=== PATIENT | male | born 1965 | race Caucasian/White ===

== ENCOUNTER 2021-10-20 08:33 | Outpatient (REF) | payer OTHER, SELFPAY ==
[2021-10-20 09:26] LABS: Binax Internal Control QC Valid; Binax Now Covid-19 Ag Positive (Negative)
== END 2021-10-20 08:34 | disposition home or self-care (01) ==
LOC: HO.LAB 08:33
PROVIDERS: Visit Provider Internal Medicine
DX: Z20.822 Contact with and (suspected) exposure to COVID-19 (principal)
CPT/HCPCS: 36415; C9803

== ENCOUNTER 2021-10-23 12:55 | Outpatient (REF) | payer OTHER, SELFPAY ==
[2021-10-23 15:08] LABS: Binax Internal Control QC Valid; Binax Now Covid-19 Ag Negative (Negative)
== END 2021-10-23 12:56 | disposition home or self-care (01) ==
LOC: HO.LAB 12:55
PROVIDERS: Visit Provider Internal Medicine
DX: Z20.822 Contact with and (suspected) exposure to COVID-19 (principal)
CPT/HCPCS: 36415; C9803

== ENCOUNTER 2023-06-18 14:24 | Outpatient (AMB) | payer BC, SELFPAY ==
--- NOTE | 2023-06-18 14:26 | MHC.PC.OV ---
Vital Signs 06/18/23 14:28 Height 5 ft 11 in Weight 203 lb BMI 28.3 BP 122/74 Blood Pressure Location Lt brachial Position Sitting Pulse 75 Pulse Source Pulse Oximeter Pulse Oximetry (%) 97 Oxygen Delivery Method Room Air Intake Visit Reasons: est care Intake Note: Patient is here as a new patient, who is concerned about bilateral foot swelling, and vericose veins. Patient needs refill of his Atorvastatin. Allergies No Known Allergies Allergy (Verified 06/18/23 14:30) Tobacco use date assessed: 06/18/23 Dental Screening Dental Screen Date: 06/18/23 Did you have a dental visit in the last 12 months?: Yes Did you have a dental problem in the last 6 months where you did not have access to dental care?: No Was dental information given to patient?: Patient has dentist HPI est care HPI Details New patient Prior PCP:?Dr. Adis Chan Last office visit/CPE: >2 years Acute issue(s): Bilateral foot swelling Varicose veins Erectile Dysfunction PMHx: HLD, varicose veins, LE edema, Gout, polyps & recommended f/u in 5 years SurgHx: None FHx: Dad: Varicose veins, Cerebral Aneurysm age 47 and . Mom: Thyroid, HTN, HLD. Brother: Stomach CA SocHx: Smokes 1/2 ppd. Also tried e-cigarettes. EtOH 3-4 drinks per day. No drugs. HPI Comments History of Present Illness Details Documentation assistance for Dejan Raphael MD, was provided by Stef Moses,? Talent Acquisition Sourcer on 06/18/2023 2:50 PM EST. I, Dr. Raphael, have read, observed, and verified documentation. PFSH Medical History (Updated 06/18/23 @ 15:15 by Stef Moses) High cholesterol Surgical History (Updated 06/18/23 @ 14:37 by Mai Montes De Oca CMA) H/O colonoscopy Family History (Updated 06/18/23 @ 14:41 by Mai Montes De Oca CMA) Father Brain aneurysm Mother High blood pressure Thyroid disease Other Mental health disorder Social History (Updated 06/18/23 @ 14:43 by Mai Montes De Oca CMA) Household Members: Family Housing: House Alcohol intake: current Patient Tobacco Use Status: Current everyday Tobacco user Cigarettes Per Day: 10 e-Cigarette/Vaping Use: Former Use Use of substances other than those prescribed or required for medical reasons: No Have you been hit, kicked, punched, or otherwise hurt by someone within the past year? 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 Hearing needs: Yes (hearing aids) Vision needs: Yes (reading glasses.) Review of Systems Const Denies chills, Denies fatigue, Denies fever(s), Denies headache(s) and Denies weakness ENT Denies dizziness and Denies headache(s) Card Denies chest pain, Denies lightheadedness, Denies dyspnea and Denies other (Palpitations) Resp Denies cough, Denies dyspnea, Denies wheezing and Denies other ( shortness of breath) Musc Denies numbness and Denies tingling Neuro Denies dizziness, Denies headache(s), Denies numbness, Denies tingling, Denies paresthesias and Denies weakness Psych Denies anxiety and Denies depression Endo Denies fatigue Aller/Immun Denies wheezing Physical exam (Primary Care) Vital Signs: Last Vital Signs Pulse 75 06/18/23 14:28 BP 122/74 06/18/23 14:28 Pulse Ox 97 06/18/23 14:28 Oxygen Delivery Method Room Air 06/18/23 14:28 BMI result Body Mass Index 28.3 Tobacco/Smoking Status: Tobacco use Status Tobacco use date assessed 06/18/23 06/18/23 14:43 Patient Tobacco Use Status Current everyday Tobacco 06/18/23 14:43 e-Cigarette/Vaping Use Former Use 06/18/23 14:43 Const General: no acute distress and well developed Nutritional Appearance: well nourished Orientation/consciousness: patient oriented x3 HENMT Head: Yes normocephalic and Yes atraumatic Eyes General: appearance normal, both eyes and all related structures Pupils: Equal, round and reactive pupils present EOM: EOMs intact bilaterally Resp Effort & Inspection: normal respiratory effort Auscultation: clear to auscultation bilaterally Cardio Rate: regular rate Rhythm: regular rhythm Heart sounds: S1 normal heart sound present, S2 normal heart sound present, no gallops, no murmurs and no rubs Neuro General: patient oriented x3 and gait normal Cranial nerves: Yes Equal, round and reactive pupils present Psych Affect: normal affect Assessment and Plan Assessment & Plan (1) Hyperlipidemia: Code(s): E78.5 - Hyperlipidemia, unspecified Plan: Has been on atorvastatin though he has not had it for few weeks Check lipids He can resume atorvastatin Will follow-up and adjust medication as needed (2) Bilateral swelling of feet: Code(s): M79.89 - Other specified soft tissue disorders Plan: Significant venous insufficiency and rather severe varicosities Avoid salt/sodium Elevate legs Use compression stockings when unable to elevate legs Discussed that we can use diuretics episodically if needed. (3) Varicose veins of lower extremity: Code(s): I83.90 - Asymptomatic varicose veins of unspecified lower extremity Plan: Patient has not seen a vascular specialist He does not feel a need to do so at this time. We can readdress in the future if worsening (4) History of gout: Code(s): Z87.39 - Personal history of other diseases of the musculoskeletal system and connective tissue Plan: Check uric acid (5) Smoker: Code(s): F17.200 - Nicotine dependence, unspecified, uncomplicated Plan: Advised weaning and cessation (6) Erectile dysfunction: Code(s): N52.9 - Male erectile dysfunction, unspecified Plan: He has used sildenafil in the past. Will resume this. Check testosterone level (7) Screening for colon cancer: Code(s): Z12.11 - Encounter for screening for malignant neoplasm of colon (8) Laboratory exam ordered as part of routine general medical examination: Code(s): Z00.00 - Encounter for general adult medical examination without abnormal findings Plan: Check labs Orders: Orders Comprehensive [place]. Panel Fast Today Z00.00 - Encounter for general adult medical examination without abnormal findings Lipid Panel Today Z00.00 - Encounter for general adult medical examination without abnormal findings Prostate Specific Antigen Scr Today Z12.5 - Encounter for screening for malignant neoplasm of prostate TSH reflex Free T4 Today Z00.00 - Encounter for general adult medical examination without abnormal findings Microalbumin, Random (w Creat) Today I10 - Essential (primary) hypertension UA and rflx microscopic Today Z00.00 - Encounter for general adult medical examination without abnormal findings Uric Acid Today Z87.39 - Personal history of other diseases of the musculoskeletal system and connective tissue Testosterone, Free/Total Today N52.9 - Male erectile dysfunction, unspecified Medications: New sildenafil administer 30 minutes to 4 hours before activity 50 mg PO DAILY PRN 6 tabs 4RF sexual activity 30 days Refilled atorvastatin 10 mg PO QPM 90 tabs 2RF Coding Level of Care Code New Pt Level 4 (37505) Diagnoses Hyperlipidemia E78.5 Bilateral swelling of feet M79.89 Varicose veins of lower extremity I83.90 History of gout Z87.39 Smoker F17.200 Erectile dysfunction N52.9 Screening for colon cancer Z12.11 Laboratory exam ordered as part of routine general medical examination Z00.00
[2023-06-18 14:28] VITALS: BP 122/74; PULSE 75; O2SAT 97; BMI 28.3
== END 2023-06-18 15:26 | disposition home or self-care (01) ==
PROVIDERS: PCP Family Medicine; Visit Provider Family Medicine
DX: E78.5 Hyperlipidemia, unspecified (principal); M79.89 Other specified soft tissue disorders; Z87.39 Personal history of other diseases of the musculoskeletal system and connective tissue; F17.210 Nicotine dependence, cigarettes, uncomplicated; I83.90 Asymptomatic varicose veins of unspecified lower extremity; N52.9 Male erectile dysfunction, unspecified
CPT/HCPCS: 99214

== ENCOUNTER 2023-08-06 07:13 | Outpatient (REF) | payer BC, SELFPAY ==
[2023-08-06 12:04] LABS: Alanine Aminotransferase 18 U/L (0-40); Albumin Level 4.5 g/dL (3.5-5.0); Alkaline Phosphatase 90 U/L (39-117); Anion Gap 12 (12-20); Aspartate Amino Transferase 23 U/L (5-37); Bilirubin Total 0.4 mg/dL (0.0-1.0); Blood Urea Nitrogen 7 mg/dL (9-16); Calcium 9.6 mg/dL (8.4-10.2); Carbon Dioxide 28 mmol/L (22-29); Chloride 102 mmol/L (96-108); Cholesterol 272 mg/dL (<200); Estimated Glomerular Filt Rate > 60; Glucose Fasting 96 mg/dL (60-99); HDL Cholesterol 64 mg/dL (>40); LDL Cholesterol Calculated 188 mg/dL (<100); Sodium 137 mmol/L (135-145); Total Protein 7.8 g/dL (6.5-8.0); Triglycerides 104 mg/dL (<150); Uric Acid 8.9 mg/dL (3.4-7.0)
[2023-08-06 12:09] LABS: TSH reflex Free T4 2.34 uIU/mL (0.32-4.0)
[2023-08-11 13:08] LABS: Testosterone, Free 95.4 pg/mL (35.0-155.0); Testosterone, Total 745 ng/dL (250-1100)
== END 2023-08-06 07:14 | disposition home or self-care (01) ==
LOC: HO.WFDLDS 07:13
PROVIDERS: Visit Provider Family Medicine
DX: Z00.00 Encounter for general adult medical examination without abnormal findings (principal); Z12.5 Encounter for screening for malignant neoplasm of prostate; N52.9 Male erectile dysfunction, unspecified; Z87.39 Personal history of other diseases of the musculoskeletal system and connective tissue
CPT/HCPCS: 36415; 80053; 80061; 84153; 84402; 84403; 84443; 84550

== ENCOUNTER 2023-09-03 08:31 | Outpatient (REF) | payer BC, SELFPAY ==
[2023-09-03 08:41] LABS: Appearance Urine Clear; Color Urine Yellow; Glucose Urine UA Negative (Negative); Leukocyte Esterase Urine Negative (Negative); Nitrite Urine Negative (Negative); PH 5.5 (5.0-9.0); Specific Gravity - Urine <= 1.005 (1.005-1.025); Urine Blood Negative (Negative); Urine Ketones Negative (Negative); Urine Protein Negative (Neg-Trace)
[2023-09-03 09:17] LABS: Microalbumin Urine < 5.0 mg/L
== END 2023-09-03 08:32 | disposition home or self-care (01) ==
LOC: HO.LNP 08:31
PROVIDERS: Visit Provider Family Medicine
DX: Z00.00 Encounter for general adult medical examination without abnormal findings (principal); I10 Essential (primary) hypertension
CPT/HCPCS: 81003; 82043; 82570

== ENCOUNTER 2023-09-17 11:36 | Outpatient (AMB) | payer BC, SELFPAY ==
[2023-09-17 11:49] VITALS: BP 126/62; PULSE 78; RESP 14; O2SAT 96; BMI 28.6
--- NOTE | 2023-09-17 11:49 | MHC.PC.OV ---
Vital Signs 09/17/23 11:49 Height 5 ft 11 in Weight 205 lb BMI 28.6 BP 126/62 Blood Pressure Location Lt brachial Position Sitting Respiration 14 Pulse 78 Pulse Source Pulse Oximeter Pulse Oximetry (%) 96 Oxygen Delivery Method Room Air Intake Visit Reasons: CPE with f/u labs and health maint. Intake Note: Patient is here to follow up on labs and is here for a physical today. Patients reports he has no concerns at this time. 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 HPI Details 58 y/o male presents for a CPE with f/u labs and health maintenance. Labs were drawn 08/06/23. Reviewed labs with pt. Elevated uric acid level at 8.9 mg.dL. He reports it has been a couple years since he had a gout flare-up. Triglycerides 104. TC 272. LDL 188. HDL 64. Continues to smoke 1/2 ppd. He reports he has been smoking 40+ years. [facility] Medical History (Updated 09/17/23 @ 12:46 by Stef Moses) High cholesterol Surgical History (Updated 06/18/23 @ 14:37 by Mai Montes De Oca CMA) H/O colonoscopy Family History (Updated 06/18/23 @ 14:41 by Mai Montes De Oca CMA) Father Brain aneurysm Mother High blood pressure Thyroid disease Other Mental health disorder Social History (Updated 06/18/23 @ 14:43 by Mai Montes De Oca CMA) Household Members: Family Housing: House Alcohol intake: current Patient Tobacco Use Status: Current everyday Tobacco user Cigarettes Per Day: 10 e-Cigarette/Vaping Use: Former Use Special loy needs: No service: No Current occupational status: employed 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 Cognitive needs: No Hearing needs: Yes (hearing aids) Vision needs: Yes (reading glasses.) Questionnaire PHQ-9 Over the last 2 weeks, how often have you been bothered by any of the following problems? 1. Little interest or pleasure in doing things: not at all 2. Feeling down, depressed, or hopeless: not at all 3. Trouble falling or staying asleep, or sleeping too much: not at all 4. Feeling tired or having little energy: not at all 5. Poor appetite or overeating: not at all 6. Feeling bad about yourself - or that you are a failure or have let yourself or your family down: not at all 7. Trouble concentrating on things, such as reading the newspaper or watching television: not at all 8. Moving or speaking so slowly that other people could have noticed. Or the opposite - being so fidgety or restless that you have been moving around a lot more than usual: not at all 9. Thoughts that you would be better off or of hurting yourself in some way: not at all Total score: 0 Depression Screening Interpretation: Negative Depression Screening Done: Yes 35393 - PHQ-9 Billing: Yes Source: Developed by Drs. Taye Tellez, Lauren Leigh, Eliceo Boogie and colleagues, with an educational kieran from [employer]. Thrive Questionnaire Date Thrive assessed: 09/17/23 I am a: Patient What is your living situation today?: I have a steady place to live Within the past 12 months, did the food you bought not last and you didn't have the money to get more?: Never true Within the past 12 months, did you worry whether your food would run out before you got money to buy more?: Never true Do you have trouble paying for medicines?: No Do you have trouble getting transportation to medical appointments?: No Do you have trouble paying your heating and electricity bill?: No Do you have trouble taking care of your child, family member or friend?: No Do you have trouble with day-to-day activities such as bathing, preparing meals, shopping, managing finances, etc.?: No Are you currently unemployed and looking for a job?: No Are you interested in more education?: No Please select the resources that you would like help with: None Currently or been in a relationship where the following occur: no concerns reported AUDIT C Alcohol Use Questionnaire (AUDIT-C) 1. How often do you have a drink containing alcohol?: 2-4 times a month 2. How many drinks containing alcohol do you have on a typical day when you are drinking?: 1 or 2 3. How often do you have six or more drinks on one occasion?: Never Total Score: 2 TAPAN-7 AMB Questionnaire TAPAN-7 Date TAPAN - 7 assessed: 09/17/23 Feeling nervous, anxious, or on edge: 0 = Not at all Not being able to stop or control worryin = Not at all Worrying too much about different things: 0 = Not at all Trouble relaxin = Not at all Being so restless that it is hard to sit still: 0 = Not at all Becoming easily annoyed or irritable: 0 = Not at all Feeling afraid as if something awful might happen: 0 = Not at all Total TAPAN-7 score (0-4 normal; 5-9 mild; 10-14 moderate; 15-21 severe): 0 Source: Developed by Drs. Taye Tellez, Lauren Leigh, Eliceo Boogie and colleagues, with an educational kieran from [employer]. TAPAN-7 Assessment Billing TAPAN-7 Assessment Tool: TAPAN-7 Assessment 58142 Review of Systems Const Denies chills, Denies fatigue, Denies fever(s), Denies headache(s) and Denies weakness Eyes Denies change in vision ENT Denies dizziness, Denies headache(s), Denies hearing loss, Denies nasal congestion, Denies sinus pain, Denies sinus pressure and Denies sore throat Card Denies chest pain, Denies lightheadedness, Denies dyspnea and Denies other (palpitations) Resp Denies cough, Denies dyspnea and Denies wheezing GI Denies abdominal pain, Denies melena, Denies hematochezia, Denies change in bowel habits, Denies dyspepsia and Denies nausea Denies hematuria and Denies dysuria Musc Denies abnormal gait, Denies myalgias, Denies arthralgias, Denies numbness and Denies tingling Skin/Breast Denies rash, Denies unusual bruising and Denies wounds Neuro Denies abnormal gait, Denies dizziness, Denies headache(s), Denies memory loss, Denies numbness, Denies Sensory deficit (Neuro), Denies tingling and Denies weakness Psych Denies anxiety, Denies depression and Denies memory loss Endo Denies cold intolerance, Denies fatigue, Denies heat intolerance, Denies polydipsia and Denies polyuria [place]rell/Lymph Denies easy bleeding and Denies easy bruising Aller/Immun Denies wheezing Physical exam (Primary Care) Vital Signs: Last Vital Signs Pulse 78 09/17/23 11:49 Resp 14 09/17/23 11:49 BP 126/62 09/17/23 11:49 Pulse Ox 96 09/17/23 11:49 Oxygen Delivery Method Room Air 09/17/23 11:49 BMI result Body Mass Index 28.6 Tobacco/Smoking Status: Tobacco use Status Tobacco use date assessed 09/17/23 09/17/23 11:57 Patient Tobacco Use Status Current everyday Tobacco 09/17/23 11:57 e-Cigarette/Vaping Use Former Use 09/17/23 11:57 PHQ-9: PHQ-9 Score PHQ-9: Total score 0 09/17/23 12:46 Depression Screening Interpretation: Negative Thrive Assessment: Date of Thrive Assessment Date Thrive assessed 09/17/23 09/17/23 11:58 Currently or been in a relationship where the following occur: no concerns reported Const General: no acute distress, well developed, alert and awake Nutritional Appearance: well nourished Orientation/consciousness: patient oriented x3 HENMT Head: Yes normocephalic and Yes atraumatic Ears: hearing grossly normal bilaterally and TM's normal bilaterally General nose exam: Normal external nose present and Normal nares present Mouth: Normal oral and palatal mucosa present and moist mucous membranes Teeth and gingiva: dentition normal Throat: Yes posterior oropharynx normal Eyes General: appearance normal, both eyes and all related structures Pupils: Equal, round and reactive pupils present and Pupil accommodation reflex normal EOM: EOMs intact bilaterally Neck Neck: Yes normal visual inspection, Yes no lymphadenopathy and Yes trachea midline Thyroid: Thyroid normal Carotids: no bruits Lymphatic: no lymphadenopathy noted Chest Chest palpation & inspection: normal inspection of the chest Resp Effort & Inspection: normal respiratory effort Auscultation: clear to auscultation bilaterally Cardio Rate: regular rate Rhythm: regular rhythm Heart sounds: S1 normal heart sound present, S2 normal heart sound present, no gallops, no murmurs and no rubs Bruits: no abdominal aortic bruits and no carotid bruits GI Palpation (GI): No Abdominal aortic bruit present, Soft to palpation, nontender, No hepatosplenomegaly present and No Rebound tenderness present Auscultation: normal bowel sounds General: Yes no CVA tenderness Back/Spine/Pelvis Back: no CVA tenderness Cervical Spine: cervical ROM normal and No Cervical spine tenderness Thoracic/Lumbar Spine: thoraco-lumbar ROM normal, No pain with thoraco-lumbar ROM, No thoracic spinal tenderness and No lumbar spinal tenderness Skin Lesions: no lesions Rashes: no rashes Trauma: no lacerations or abrasions Wounds: no wounds Nails: normal Neuro General: patient oriented x3 Cranial nerves: Yes Equal, round and reactive pupils present Cognition (Neuro): normal cognition Gait exam (Neuro): Normal gait present Motor exam (neuro): 5/5 motor strength present throughout Sensory Exam: No Sensory deficit (Neuro) Deep tendon reflexes (DTR's): Right patellar reflex intensity grade: 2+ and Left patellar reflex intensity grade: 2+ Extrem General: Yes normal to inspection and No edema Psych Appearance: grossly normal Affect: normal affect Attitude: cooperative Thought process: Normal thought process present Assessment and Plan Assessment & Plan (1) Adult general medical exam: Code(s): Z00.00 - Encounter for general adult medical examination without abnormal findings Plan: 58-year-old?male?presents?for?complete?physical?exam Encouraged?healthy?diet?with?active?lifestyle?and?plenty?of?exercise (2) Elevated blood uric acid level: Code(s): E79.0 - Hyperuricemia without signs of inflammatory arthritis and tophaceous disease Plan: Elevated?uric?acid?levels?but?patient?says?he?has?had?no?recent?flares?of?gout Encouraged?diet?low?in?proteins,?sea?foods?and?alcohol (3) History of gout: Code(s): Z87.39 - Personal history of other diseases of the musculoskeletal system and connective tissue Plan: As?above (4) Erectile dysfunction: Code(s): N52.9 - Male erectile dysfunction, unspecified Plan: Testosterone?levels?were?normal Encouraged?control?of?his?cholesterol?levels?and?recommended?smoking?cessation (5) Hyperlipidemia: Code(s): E78.5 - Hyperlipidemia, unspecified Plan: Lipids?significantly?elevated Resume?atorvastatin?at?20?mg?daily Will?follow-up?on?this?in?a?few?months (6) Smoker: Code(s): F17.200 - Nicotine dependence, unspecified, uncomplicated Plan: As?above,?advised?smoking?cessation Meets?criteria?for?low-dose?CT?scan?screening?for?lung?cancer-ordered (7) Screening for prostate cancer: Code(s): Z12.5 - Encounter for screening for malignant neoplasm of prostate Plan: PSA?was?within?normal?limits Orders: Orders Comprehensive [place]. Panel Fast Today E78.5 - Hyperlipidemia, unspecified, Z00.00 - Encounter for general adult medical examination without abnormal findings Lipid Panel Today E78.5 - Hyperlipidemia, unspecified, Z00.00 - Encounter for general adult medical examination without abnormal findings Uric Acid Today E79.0 - Hyperuricemia without signs of inflammatory arthritis and tophaceous disease Medications: Changed From atorvastatin 10 mg PO QPM 90 tabs 2RF To atorvastatin 20 mg PO QPM 90 tabs 2RF 90 days Coding Level of Care Code Est Pt Prev Care 40-64y(02095) Diagnoses Adult general medical exam Z00.00 Elevated blood uric acid level E79.0 History of gout Z87.39 Erectile dysfunction N52.9 Hyperlipidemia E78.5 Smoker F17.200 Screening for prostate cancer Z12.5 Additional Codes TAPAN-7 Assessment Billing - TAPAN-7 Assessment Tool: TAPAN-7 Assessment 65541 ([id number])
== END 2023-09-17 13:09 | disposition home or self-care (01) ==
PROVIDERS: PCP Family Medicine; Visit Provider Family Medicine
DX: Z00.00 Encounter for general adult medical examination without abnormal findings (principal); E79.0 Hyperuricemia without signs of inflammatory arthritis and tophaceous disease; Z87.39 Personal history of other diseases of the musculoskeletal system and connective tissue; N52.9 Male erectile dysfunction, unspecified; E78.5 Hyperlipidemia, unspecified; F17.210 Nicotine dependence, cigarettes, uncomplicated
CPT/HCPCS: 99396

== ENCOUNTER 2023-12-17 06:58 | Outpatient (REF) | payer BC, SELFPAY ==
[2023-12-17 07:58] LABS: Alanine Aminotransferase 26 U/L (0-40); Albumin Level 4.4 g/dL (3.5-5.0); Alkaline Phosphatase 88 U/L (39-117); Anion Gap 13 (12-20); Aspartate Amino Transferase 26 U/L (5-37); Bilirubin Total 0.7 mg/dL (0.0-1.0); Blood Urea Nitrogen 9 mg/dL (9-16); Calcium 9.5 mg/dL (8.4-10.2); Carbon Dioxide 29 mmol/L (22-29); Chloride 103 mmol/L (96-108); Cholesterol 188 mg/dL (<200); Estimated Glomerular Filt Rate > 60; Glucose Fasting 100 mg/dL (60-99); HDL Cholesterol 70 mg/dL (>40); LDL Cholesterol Calculated 102 mg/dL (<100); Potassium 4.9 mmol/L (3.3-5.1); Sodium 140 mmol/L (135-145); Total Protein 7.6 g/dL (6.5-8.0); Triglycerides 82 mg/dL (<150); Uric Acid 8.7 mg/dL (3.4-7.0)
== END 2023-12-17 06:59 | disposition home or self-care (01) ==
LOC: HO.LAB 06:58
PROVIDERS: PCP Family Medicine; Visit Provider Family Medicine
DX: Z00.00 Encounter for general adult medical examination without abnormal findings (principal); E78.5 Hyperlipidemia, unspecified; E79.0 Hyperuricemia without signs of inflammatory arthritis and tophaceous disease
CPT/HCPCS: 36415; 80053; 80061; 84550

== ENCOUNTER 2023-12-17 08:13 | Outpatient (AMB) | payer BC, SELFPAY ==
[2023-12-17 08:16] VITALS: BP 108/60; PULSE 68; RESP 13; TEMP 36.4; O2SAT 98; BMI 28.7
--- NOTE | 2023-12-17 08:16 | MHC.PC.OV ---
Vital Signs 12/17/23 08:16 Height 5 ft 11 in Weight 206 lb 2 oz BMI 28.7 BP 108/60 Blood Pressure Location Rt brachial Position Sitting Respiration 13 Pulse 68 Pulse Source Pulse Oximeter Temp 97.5 F Temp Source Temporal Artery Scan Pulse Oximetry (%) 98 Oxygen Delivery Method Room Air Intake Visit Reasons: f/u hyperlipidemia Dermatology Procedural Physician Required: No Accompanied by: Self / Same As Patient Allergies No Known Allergies Allergy (Verified 12/17/23 08:22) Tobacco use date assessed: 12/17/23 Dental Screening Dental Screen Date: 12/17/23 Did you have a dental visit in the last 12 months?: Yes Did you have a dental problem in the last 6 months where you did not have access to dental care?: No Was dental information given to patient?: Patient has dentist HPI f/u hyperlipidemia HPI Details 58 y/o male presents to f/u hyperlipidemia. LDL cholesterol had been significantly elevated off of artovastatin. Refilled atorvastatin at an increase from 10 mg per day to 20 mg per day. Labs were drawn 12/17/23. Reviewed labs with pt. Fasting glucose 100. Triglycerides 82. TC improved from 272 to 188. LDL improved from 188 to 102. HDL 70. 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 Cognitive needs: No Hearing needs: Yes (hearing aids) Vision needs: Yes (reading glasses.) Questionnaire Thrive Questionnaire Date Thrive assessed: 09/17/23 TAPAN-7 AMB Questionnaire TAPAN-7 Date TAPAN - 7 assessed: 09/17/23 Source: Developed by Drs. Taye Tellez, Lauren Leigh, Eliceo Boogie and colleagues, with an educational kieran from [employer]. Review of Systems Const Denies chills, Denies fatigue, Denies fever(s), Denies headache(s) and Denies weakness ENT Denies dizziness and Denies headache(s) Card Denies dyspnea Resp Denies cough, Denies dyspnea, Denies wheezing and Denies other (shortness of breath) Musc Denies numbness and Denies tingling Neuro Denies dizziness, Denies headache(s), Denies numbness, Denies tingling and Denies weakness Psych Denies anxiety and Denies depression Endo Denies fatigue Aller/Immun Denies wheezing Physical exam (Primary Care) Vital Signs: Last Vital Signs Temp 97.5 F 12/17/23 08:16 Pulse 68 12/17/23 08:16 Resp 13 12/17/23 08:16 BP 108/60 12/17/23 08:16 Pulse Ox 98 12/17/23 08:16 Oxygen Delivery Method Room Air 12/17/23 08:16 BMI result Body Mass Index 28.7 Tobacco/Smoking Status: Tobacco use Status Tobacco use date assessed 12/17/23 12/17/23 08:23 Patient Tobacco Use Status Current everyday Tobacco 12/17/23 08:23 e-Cigarette/Vaping Use Former Use 12/17/23 08:23 Thrive Assessment: Date of Thrive Assessment Date Thrive assessed 09/17/23 12/17/23 08:23 Const General: well developed; No acute distress Nutritional Appearance: well nourished Orientation/consciousness: patient oriented x3 [facility] Head: Yes normocephalic and Yes atraumatic Eyes General: appearance normal, both eyes and all related structures Pupils: Equal, round and reactive pupils present EOM: EOMs intact bilaterally Resp Effort & Inspection: normal respiratory effort Auscultation: clear to auscultation bilaterally Cardio Rate: regular rate Rhythm: regular rhythm Heart sounds: S1 normal heart sound present, S2 normal heart sound present, no gallops, no murmurs and no rubs Neuro General: patient oriented x3 and gait normal Cranial nerves: Yes Equal, round and reactive pupils present Psych Affect: normal affect Assessment and Plan Assessment & Plan (1) Hyperlipidemia: Code(s): E78.5 - Hyperlipidemia, unspecified Plan: But?is?now?well?controlled?on?atorvastatin?20?mg?daily Continue?current?medication Continue?exercise?and?diet?low?in?saturated?fats?and?cholesterol (2) Smoker: Code(s): F17.200 - Nicotine dependence, unspecified, uncomplicated Plan: Encouraged?weaning?and?cessation Patient?has?upcoming?low-dose?CT?scan?later?this?month. Orders: Orders Comprehensive [place]. Panel Fast Today Z00.00 - Encounter for general adult medical examination without abnormal findings Microalbumin, Random (w Creat) Today I10 - Essential (primary) hypertension Prostate Specific Antigen Scr Today Z12.5 - Encounter for screening for malignant neoplasm of prostate TSH reflex Free T4 Today Z00.00 - Encounter for general adult medical examination without abnormal findings Lipid Panel Today Z00.00 - Encounter for general adult medical examination without abnormal findings UA and rflx microscopic Today Z00.00 - Encounter for general adult medical examination without abnormal findings Coding Level of Care Code Est Pt Level 3 (67867) Diagnoses Hyperlipidemia E78.5 Smoker F17.200
== END 2023-12-17 09:01 | disposition home or self-care (01) ==
PROVIDERS: PCP Family Medicine; Visit Provider Family Medicine
DX: E78.5 Hyperlipidemia, unspecified (principal); F17.200 Nicotine dependence, unspecified, uncomplicated
CPT/HCPCS: 99213

== ENCOUNTER 2024-01-03 09:05 | Outpatient (AMB) | payer BC, SELFPAY ==
--- NOTE | 2024-01-03 09:11 | A.OFFVIS_ITS ---
Intake Intake Visit Reasons: LDCT SD Allergies No Known Allergies Allergy (Verified 12/17/23 08:22) HPI HPI Comments History of Present Illness Details Uziel is a pleasant 58 year old male, current smoker with a 30 PYH. Patient has been smoking since age 15 for 43 years at 1/2-3/4 ppd. Denies marijuana use. Denies exposure to chemicals or substances like asbestos. Admits second hand smoke exposure. Denies known family history of lung cancer. Denies personal history of cancers. Denies chest CT in last year. Denies recent travel outside the [place]. Admits testing positive for COVID. Admits receiving COVID Vaccine. Denies fever, chills, chest pain, new cough, hemoptysis or unintentional weight loss. Lung Cancer Screening Questionnaire reviewed with patient by provider. Shared Decision Making Completed. Discussed in detail with patient, the risk versus benefit of LDCT screening. Patient in agreement of proceeding with scan. 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 Cognitive needs: No Hearing needs: Yes (hearing aids) Vision needs: Yes (reading glasses.) Assessment & Plan Assessment & Plan (1) Smoker: Code(s): F17.200 - Nicotine dependence, unspecified, uncomplicated Plan Shared decision-making visit completed today in office. This patient meets criteria for LDCT for lung cancer screening purposes and is asymptomatic. Offered smoking cessation. Patient has been scheduled for a low dose chest CT for screening purposes at [facility]. We discussed how the results will be obtained depending on CT findings. RADS 1 and RADS 2 will receive a letter with results and will follow up for annual LDCT. Patient informed they will be contacted at later date to schedule upcoming LDCT scan. RADS 3 and RADS 4 will receive a telephone call, or an office visit after reviewing case at our Lung Cancer Conference to determine when the next LDCT will be scheduled or furt her interventions that may be needed. Discussed importance of screening program and compliance with yearly LDCT scan as scheduled. Risks, benefits, and alternatives were discussed in detail and patient agrees to proceed. Risks discussed include but are not limited to: radiation exposure and possibility of additional intervention for benign disease. Benefits include detection of lung cancer at an early stage. A copy of today's visit and LDCT results will be sent to patient's PCP. Incidental findings on LDCT are PCP's responsibility. If there are incidental findings, our office will ensure that PCP office is aware of these findings. All questions were answered and patient is in agreement of plan. Coding Level of Care Code Lung Cancer Screening G0296 Diagnoses Smoker F17.200
== END 2024-01-03 09:20 | disposition home or self-care (01) ==
PROVIDERS: PCP Family Medicine; Referring Provider Family Medicine; Visit Provider Nurse Practitioner Family
DX: F17.200 Nicotine dependence, unspecified, uncomplicated (principal)
CPT/HCPCS: G0296

== ENCOUNTER 2024-01-03 09:21 | Outpatient (REF) | payer BC, SELFPAY ==
--- NOTE | ~2024-01-03 | CT_ITS ---
EXAMINATION: CT LUNG SCREENING CLINICAL INFORMATION: Nicotine dependence. Current smoker at 1 pack per day with history of 46 pack-years. COMPARISON: None available. TECHNIQUE: Multidetector volumetric CT imaging of the chest is performed without contrast using low dose technique. Additional 2D coronal and sagittal reformatted images and axial 3D maximum intensity projection (MIP) images are generated on the CT workstation. This CT examination was performed using dose optimization techniques as appropriate, variously including the following: *Automated exposure control *Adjustment of mA and/or kV according to patient size (this includes techniques or standardized protocols for targeted exams where dose is matched to indication/reason for exam; i.e. extremities or head) *Use of iterative reconstruction technique DLP: 62 mGy-cm. FINDINGS: LUNGS: Chor-zf-unqrpgec emphysematous changes are present with large blebs at the apices. Moderate bronchial wall thickening is seen without bronchiectasis. Tiny punctate granuloma is seen in the right upper lobe (5:84). No suspicious lung masses worrisome for malignancy are seen. MEDIASTINUM: The mediastinum is normal. CORONARY ARTERY CALCIFICATION: Present. PLEURA: There is no pleural effusion. No pleural mass or thickening. AXILLA: No lymphadenopathy. UPPER ABDOMEN: Mild hepatic steatosis. OSSEOUS STRUCTURES: Mild degenerative changes are present in the spine. CT/CT lung screening IMPRESSION: No findings concerning for malignancy. Moderate emphysema and bronchial wall thickening. ASSESSMENT: Lung-RADS category 1: Negative. RECOMMENDATION: Routine annual low-dose CT screening in 12 months.
== END 2024-01-03 09:22 | disposition home or self-care (01) ==
LOC: HO.CT 09:21
PROVIDERS: PCP Family Medicine; Visit Provider Nurse Practitioner Family
DX: Z12.2 Encounter for screening for malignant neoplasm of respiratory organs (principal); F17.210 Nicotine dependence, cigarettes, uncomplicated
CPT/HCPCS: 71271; G0296

== ENCOUNTER 2024-09-29 08:46 | Outpatient (AMB) | payer BC, SELFPAY ==
--- NOTE | 2024-09-29 08:50 | A.OFFPC_ITS ---
Vital Signs 09/29/24 09:01 Height 5 ft 11 in Weight 206 lb 6 oz BMI 28.8 BP 116/60 Blood Pressure Location Rt brachial Position Sitting Respiration 16 Pulse 70 Pulse Source Pulse Oximeter Pulse Oximetry (%) 95 Oxygen Delivery Method Room Air Intake Visit Reasons: CPE w/ f/u labs and health maint. - see comments Intake Note: CPE Allergies No Known Allergies Allergy (Verified 09/29/24 08:52) Medication List - Last Reconciled 09/29/24 by Deajn Raphael MD atorvastatin 20 mg PO QPM 90 days sildenafil 50 mg PO DAILY PRN 30 days Tobacco use date assessed: 09/29/24 Dental Screening Dental Screen Date: 09/29/24 Did you have a dental visit in the last 12 months?: Yes Did you have a dental problem in the last 6 months where you did not have access to dental care?: No Was dental information given to patient?: Patient has dentist HPI CPE w/ f/u labs and health maint. - see comments HPI Details 59 y/o male presents for a CPE with f/u labs and health maintenance. No recent labs to review. He is on artovastatin 20mg. Denies any issues with his medication regimen. Has a colonoscopy scheduled and an appt. with GI in January. Continues to smoke. CT lung 01/03/24 showed moderate emphysema and bronchial wall thickening. 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 Cognitive needs: No Hearing needs: Yes (hearing aids) Vision needs: Yes (reading glasses.) Questionnaire PHQ-9 Over the last 2 weeks, how often have you been bothered by any of the following problems? 1. Little interest or pleasure in doing things: not at all 2. Feeling down, depressed, or hopeless: not at all 3. Trouble falling or staying asleep, or sleeping too much: not at all 4. Feeling tired or having little energy: not at all 5. Poor appetite or overeating: not at all 6. Feeling bad about yourself - or that you are a failure or have let yourself or your family down: not at all 7. Trouble concentrating on things, such as reading the newspaper or watching television: not at all 8. Moving or speaking so slowly that other people could have noticed. Or the opposite - being so fidgety or restless that you have been moving around a lot more than usual: not at all 9. Thoughts that you would be better off or of hurting yourself in some way: not at all Total score: 0 Depression Screening Interpretation: Negative Depression Screening Done: Yes 07716 - PHQ-9 Billing: Yes Source: Developed by Drs. Taye Tellez, Lauren Leigh, Eliceo Boogie and colleagues, with an educational kieran from [employer]. Thrive Questionnaire Date Thrive assessed: 09/29/24 I am a: Patient What is your living situation today?: I have a steady place to live Within the past 12 months, did the food you bought not last and you didn't have the money to get more?: Never true Within the past 12 months, did you worry whether your food would run out before you got money to buy more?: Never true Do you have trouble paying for medicines?: No Do you have trouble getting transportation to medical appointments?: No Do you have trouble paying your heating and electricity bill?: No Do you have trouble taking care of your child, family member or friend?: No Do you have trouble with day-to-day activities such as bathing, preparing meals, shopping, managing finances, etc.?: No Are you currently unemployed and looking for a job?: No Are you interested in more education?: No Please select the resources that you would like help with: None Currently or been in a relationship where the following occur: No concerns reported THRIVE Score: 0 AUDIT C Alcohol Use Questionnaire (AUDIT-C) 1. How often do you have a drink containing alcohol?: 2-3 times a week 2. How many drinks containing alcohol do you have on a typical day when you are drinking?: 3 or 4 3. How often do you have six or more drinks on one occasion?: Less than monthly Total Score: 5 TAPAN-7 AMB Questionnaire TAPAN-7 Date TAPAN - 7 assessed: 09/29/24 Feeling nervous, anxious, or on edge: 0 = Not at all Not being able to stop or control worryin = Not at all Worrying too much about different things: 0 = Not at all Trouble relaxin = Not at all Being so restless that it is hard to sit still: 0 = Not at all Becoming easily annoyed or irritable: 0 = Not at all Feeling afraid as if something awful might happen: 0 = Not at all Total TAPAN-7 score (0-4 normal; 5-9 mild; 10-14 moderate; 15-21 severe): 0 Source: Developed by Drs. Taye eTllez, Lauren Leigh, Eliceo Boogie and colleagues, with an educational kieran from [employer]. TAPAN-7 Assessment Billing TAPAN-7 Assessment Tool: TAPAN-7 Assessment 31858 Review of Systems Const Denies chills, Denies fatigue, Denies fever(s), Denies headache(s) and Denies weakness Eyes Denies change in vision ENT Denies dizziness, Denies headache(s), Denies hearing loss, Denies nasal congestion, Denies sinus pain, Denies sinus pressure and Denies sore throat Card Denies chest pain, Denies lightheadedness, Denies dyspnea and Denies other (palpitations) Resp Denies cough, Denies dyspnea and Denies wheezing GI Denies abdominal pain, Denies melena, Denies hematochezia, Denies change in bowel habits, Denies dyspepsia and Denies nausea Denies hematuria and Denies dysuria Musc Denies abnormal gait, Denies myalgias, Denies arthralgias, Denies numbness and Denies tingling Skin/Breast Denies rash, Denies unusual bruising and Denies wounds Neuro Denies abnormal gait, Denies dizziness, Denies headache(s), Denies memory loss, Denies numbness, Denies Sensory deficit (Neuro), Denies tingling and Denies weakness Psych Denies anxiety, Denies depression and Denies memory loss Endo Denies cold intolerance, Denies fatigue, Denies heat intolerance, Denies polydipsia and Denies polyuria Montrell/Lymph Denies easy bleeding and Denies easy bruising Aller/Immun Denies wheezing Physical exam (Primary Care) Vital Signs: Last Vital Signs Pulse 70 09/29/24 09:01 Resp 16 09/29/24 09:01 BP 116/60 09/29/24 09:01 Pulse Ox 95 09/29/24 09:01 Oxygen Delivery Method Room Air 09/29/24 09:01 BMI result Body Mass Index 28.8 Tobacco/Smoking Status: Tobacco use Status Tobacco use date assessed 09/29/24 09/29/24 09:00 Patient Tobacco Use Status Current everyday Tobacco 09/29/24 08:55 e-Cigarette/Vaping Use Former Use 09/29/24 08:55 PHQ-9: PHQ-9 Score PHQ-9: Total score 0 09/29/24 09:00 Depression Screening Interpretation: Negative Thrive Assessment: Date of Thrive Assessment Date Thrive assessed 09/29/24 09/29/24 09:00 Currently or been in a relationship where the following occur: No concerns reported Const General: no acute distress, well developed, alert and awake Nutritional Appearance: well nourished Orientation/consciousness: patient oriented x3 HENMT Head: Yes normocephalic and Yes atraumatic Ears: hearing grossly normal bilaterally and TM's normal bilaterally General nose exam: Normal external nose present and Normal nares present Mouth: Normal oral and palatal mucosa present and moist mucous membranes Teeth and gingiva: dentition normal Throat: Yes posterior oropharynx normal Eyes General: appearance normal, both eyes and all related structures Pupils: Equal, round and reactive pupils present and Pupil accommodation reflex normal EOM: EOMs intact bilaterally Neck Neck: Yes normal visual inspection, Yes no lymphadenopathy and Yes trachea midline Thyroid: Thyroid normal Carotids: no bruits Lymphatic: no lymphadenopathy noted Chest Chest palpation & inspection: normal inspection of the chest Resp Other: Distant breath sounds but otherwise clear Effort & Inspection: normal respiratory effort Auscultation: clear to auscultation bilaterally Cardio Rate: regular rate Rhythm: regular rhythm Heart sounds: S1 normal heart sound present, S2 normal heart sound present, no gallops, no murmurs and no rubs Bruits: no abdominal aortic bruits and no carotid bruits GI Palpation (GI): No Abdominal aortic bruit present, Soft to palpation, nontender, No hepatosplenomegaly present and No Rebound tenderness present Auscultation: normal bowel sounds General: Yes no CVA tenderness Back/Spine/Pelvis Back: no CVA tenderness Cervical Spine: cervical ROM normal and No Cervical spine tenderness Thoracic/Lumbar Spine: thoraco-lumbar ROM normal, No pain with thoraco-lumbar ROM, No thoracic spinal tenderness and No lumbar spinal tenderness Skin Lesions: no lesions Rashes: no rashes Trauma: no lacerations or abrasions Wounds: no wounds Nails: normal Neuro General: patient oriented x3 Cranial nerves: Yes Equal, round and reactive pupils present Cognition (Neuro): normal cognition Gait exam (Neuro): Normal gait present Motor exam (neuro): 5/5 motor strength present throughout Sensory Exam: No Sensory deficit (Neuro) Deep tendon reflexes (DTR's): Right patellar reflex intensity grade: 2+ and Left patellar reflex intensity grade: 2+ Extrem General: Yes normal to inspection and No edema Psych Appearance: grossly normal Affect: normal affect Attitude: cooperative Thought process: Normal thought process present Coding Level of Care Code Est Pt Level 3 (63544) Est Pt Prev Care 40-64y(57609) Diagnoses Adult general medical exam Z00.00 Hyperlipidemia E78.5 Erectile dysfunction N52.9 Smoker F17.200 Emphysema of lung J43.9 Screening for prostate cancer Z12.5 Screening for colon cancer Z12.11 Additional Codes TAPAN-7 Assessment Billing - TAPAN-7 Assessment Tool: TAPAN-7 Assessment 07127 ([id number]) PHQ-9 - 91014 - PHQ-9 Billing: Yes ([id number]) Assessment & Plan Assessment & Plan (1) Adult general medical exam: Code(s): Z00.00 - Encounter for general adult medical examination without abnormal findings Category: Medical Plan: 59-year-old?male?presents?for?complete?physical?exam Encouraged?healthy?diet?with?active?lifestyle?and?plenty?of?exercise (2) Hyperlipidemia: Code(s): E78.5 - Hyperlipidemia, unspecified Category: Medical Plan: Cholesterol?levels?were?well?controlled?at?last?check?with?atorvastatin?20?mg?da cheli. Due?to?recheck?lipids?prior?to?next?visit?and?will?discuss (3) Erectile dysfunction: Code(s): N52.9 - Male erectile dysfunction, unspecified Category: Medical Plan: Sildenafil?is?working Refilled?script (4) Smoker: Code(s): F17.200 - Nicotine dependence, unspecified, uncomplicated Category: Social Hx Plan: Ongoing?smoking LDCT in?December?showed?no?evidence?of?malignancy?but?did?show?early?emphysema. Encouraged?smoking?cessation.??Patient?is?precontemplative I?let?him?know?he?can?contact?me?if/when?he?decides?to?quit (5) Emphysema of lung: Code(s): J43.9 - Emphysema, unspecified Category: Medical Plan: As?above Lungs?are?clear (6) Screening for prostate cancer: Code(s): Z12.5 - Encounter for screening for malignant neoplasm of prostate Category: Medical Plan: PSA?is?ordered?and?will?discuss?at?next?visit (7) Screening for colon cancer: Code(s): Z12.11 - Encounter for screening for malignant neoplasm of colon Category: Medical Plan: Patient?has?appointment?with??Radha?for?a?5?year?follow-up Orders: Orders CT lung screening 3 Months F17.200 - Nicotine dependence, unspecified, uncomplicated, Z12.2 - Encounter for screening for malignant neoplasm of respiratory organs Prostate Specific Antigen Scr Today Z12.5 - Encounter for screening for malignant neoplasm of prostate TSH reflex Free T4 Today Z00.00 - Encounter for general adult medical examination without abnormal findings UA and rflx microscopic Today Z00.00 - Encounter for general adult medical exam ination without abnormal findings Comprehensive [place]. Panel Fast Today Z00.00 - Encounter for general adult medical examination without abnormal findings Lipid Panel Today Z00.00 - Encounter for general adult medical examination without abnormal findings Microalbumin, Random (w Creat) Today I10 - Essential (primary) hypertension Medications: Refilled sildenafil administer 30 minutes to 4 hours before activity 50 mg PO DAILY 30 days PRN 20 tabs 4RF sexual activity
[2024-09-29 09:01] VITALS: BP 116/60; PULSE 70; RESP 16; O2SAT 95; BMI 28.8
== END 2024-09-29 09:25 | disposition home or self-care (01) ==
PROVIDERS: PCP Family Medicine; Visit Provider Family Medicine
DX: Z00.00 Encounter for general adult medical examination without abnormal findings (principal); E78.5 Hyperlipidemia, unspecified; J43.9 Emphysema, unspecified; N52.9 Male erectile dysfunction, unspecified; F17.200 Nicotine dependence, unspecified, uncomplicated; Z12.5 Encounter for screening for malignant neoplasm of prostate; Z12.11 Encounter for screening for malignant neoplasm of colon

== ENCOUNTER → 2024-09-29 08:46 | Outpatient (BNVA) | payer BC, SELFPAY | PROVIDERS: PCP Family Medicine; Visit Provider Family Medicine | DX: Z00.00 Encounter for general adult medical examination without abnormal findings (principal); E78.5 Hyperlipidemia, unspecified; N52.9 Male erectile dysfunction, unspecified; J43.9 Emphysema, unspecified; I10 Essential (primary) hypertension; F17.200 Nicotine dependence, unspecified, uncomplicated; Z79.899 Other long term (current) drug therapy | CPT/HCPCS: 96127 ==

== ENCOUNTER 2025-01-07 06:00 | Outpatient (REF) | payer BC, SELFPAY ==
[2025-01-07 07:51] LABS: Alanine Aminotransferase 26 U/L (0-40); Albumin Level 4.4 g/dL (3.5-5.0); Alkaline Phosphatase 92 U/L (39-117); Anion Gap 11 (12-20); Aspartate Amino Transferase 26 U/L (5-37); Bilirubin Total 0.4 mg/dL (0.0-1.0); Blood Urea Nitrogen 17 mg/dL (9-16); Calcium 9.2 mg/dL (8.4-10.2); Carbon Dioxide 25 mmol/L (22-29); Chloride 106 mmol/L (96-108); Cholesterol 202 mg/dL (<200); Estimated Glomerular Filt Rate > 60; Glucose Fasting 97 mg/dL (60-99); HDL Cholesterol 65 mg/dL (>40); LDL Cholesterol Calculated 120 mg/dL (<100); Potassium 5.1 mmol/L (3.3-5.1); Sodium 137 mmol/L (135-145); Total Protein 7.5 g/dL (6.5-8.0); Triglycerides 85 mg/dL (<150)
[2025-01-07 08:03] LABS: Prostate Specific Antigen Scr 1.66 ng/mL (<0.05-4.0)
[2025-01-07 08:08] LABS: TSH reflex Free T4 3.18 uIU/mL (0.32-4.0)
[2025-01-08 12:50] LABS: Appearance Urine Clear; Color Urine Yellow; Glucose Urine UA Negative (Negative); Leukocyte Esterase Urine Negative (Negative); Nitrite Urine Negative (Negative); PH 5.5 (5.0-9.0); Specific Gravity - Urine 1.015 (1.005-1.025); Urine Blood Negative (Negative); Urine Ketones Negative (Negative); Urine Protein Negative (Neg-Trace)
[2025-01-08 12:52] LABS: Creatinine Urine 70.14 mg/dL; Microalbumin Urine < 5.0 mg/L
== END 2025-01-07 06:01 | disposition home or self-care (01) ==
LOC: HO.LAB 06:00
PROVIDERS: PCP Family Medicine; Visit Provider Family Medicine
DX: Z00.00 Encounter for general adult medical examination without abnormal findings (principal); Z12.5 Encounter for screening for malignant neoplasm of prostate; I10 Essential (primary) hypertension
CPT/HCPCS: 36415; 80053; 80061; 81003; 82570; 84153; 84443

== ENCOUNTER 2025-01-19 08:25 | Outpatient (AMB) | payer BC, SELFPAY ==
--- NOTE | 2025-01-19 08:43 | A.OFFPC_ITS ---
Vital Signs 01/19/25 08:46 Height 5 ft 11 in Weight 209 lb 8 oz BMI 29.2 BP 120/70 Blood Pressure Location Lt brachial Position Sitting Respiration 14 Pulse 72 Pulse Source Pulse Oximeter Temp 98.1 F Temp Source Oral Pulse Oximetry (%) 95 Oxygen Delivery Method Room Air Intake Visit Reasons: f/u chronic conditions Intake Note: patient is here to follow up on labs Commissary Steward Required: No Allergies No Known Allergies Allergy (Verified 01/19/25 08:44) Tobacco use date assessed: 09/29/24 Dental Screening Dental Screen Date: 09/29/24 HPI f/u chronic conditions HPI Details 59 y/o male presents to f/u chronic cond itions. Smoking with early emphysema and following up in LDCT. CT lung 01/03/24 showed no concerning findings. Labs drawn 01/07/25. Reviewed labs with pt. Fasting glucose 97. Triglycerides 85. TC 202. LDL 120. HDL 65. PSA 1.66. PFSH Medical History (Updated 11/03/24 @ 09:34 by Geetha Gonzalez PA-C) History of gout Tubular adenoma of colon Erectile dysfunction Hyperlipidemia Nicotine dependence, cigarettes, uncomplicated Surgical History (Updated 11/03/24 @ 09:33 by Geetha Gonzalez PA-C) History of colonoscopy Family History Father Brain aneurysm Mother High blood pressure Thyroid disease Other Mental health disorder Social History (Updated 11/03/24 @ 09:31 by Geetha Gonzalez PA-C) Household Members: Family Housing: House Alcohol intake: current Patient Tobacco Use Status: Current everyday Tobacco user Cigarette Packs Per Day: 0.5 Cigarettes Per Day: 10 Years Smoked: (onset 15, 1/2-3/4ppd x 42yrs, 25pyh) e-Cigarette/Vaping Use: Former Use Special loy needs: No service: No Current occupational status: employed 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 Cognitive needs: No Hearing needs: Yes (hearing aids) Vision needs: Yes (reading glasses.) Questionnaire Thrive Questionnaire Date Thrive assessed: 09/29/24 TAPAN-7 AMB Questionnaire TAPAN-7 Date TAPAN - 7 assessed: 09/29/24 Source: Developed by Drs. Taye Tellez, Lauren B.W. Eliceo Leigh and colleagues, with an educational kieran from [employer]. Review of Systems Const Denies chills, Denies fatigue, Denies fever(s), Denies headache(s) and Denies weakness ENT Denies dizziness and Denies headache(s) Card Denies dyspnea Resp Denies cough, Denies dyspnea, Denies wheezing and Denies other (shortness of breath) Musc Denies numbness and Denies tingling Neuro Denies dizziness, Denies headache(s), Denies numbness, Denies tingling and Denies weakness Psych Denies anxiety and Denies depression Endo Denies fatigue Aller/Immun Denies wheezing Physical exam (Primary Care) Vital Signs: Last Vital Signs Temp 98.1 F 01/19/25 08:46 Pulse 72 01/19/25 08:46 Resp 14 01/19/25 08:46 BP 120/70 01/19/25 08:46 Pulse Ox 95 01/19/25 08:46 Oxygen Delivery Method Room Air 01/19/25 08:46 BMI result Body Mass Index 29.2 Tobacco/Smoking Status: Tobacco use Status Tobacco use date assessed 09/29/24 01/19/25 08:48 Patient Tobacco Use Status Current everyday Tobacco 01/19/25 08:48 e-Cigarette/Vaping Use Former Use 01/19/25 08:48 Thrive Assessment: Date of Thrive Assessment Date Thrive assessed 09/29/24 01/19/25 08:48 Const General: well developed; No acute distress Nutritional Appearance: well nourished Orientation/consciousness: patient oriented x3 HENMT Head: Yes normocephalic and Yes atraumatic Eyes General: appearance normal, both eyes and all related structures Pupils: Equal, round and reactive pupils present EOM: EOMs intact bilaterally Resp Effort & Inspection: normal respiratory effort Auscultation: clear to auscultation bilaterally Cardio Rate: regular rate Rhythm: regular rhythm Heart sounds: S1 normal heart sound present, S2 normal heart sound present, no gallops, no murmurs and no rubs Neuro General: patient oriented x3 and gait normal Cranial nerves: Yes Equal, round and reactive pupils present Psych Affect: normal affect Coding Level of Care Code Est Pt Level 3 (07281) Diagnoses Nicotine dependence, cigarettes, uncomplicated F17.210 Emphysema of lung J43.9 Hyperlipidemia E78.5 Screening for colon cancer Z12.11 Assessment & Plan Assessment & Plan (1) Nicotine dependence, cigarettes, uncomplicated: Comment: (onset 15, 1/2-3/4ppd x 44yrs, 25pyh) Code(s): F17.210 - Nicotine dependence, cigarettes, uncomplicated Category: Medical Plan: LDCT?last?year?was?negative Reminded?him?to?get?scheduled?for?next?scan (2) Emphysema of lung: Code(s): J43.9 - Emphysema, unspecified Category: Medical Plan: Stable?and?lungs?are?clear.??Breathing?easily (3) Hyperlipidemia: Code(s): E78.5 - Hyperlipidemia, unspecified Category: Medical Plan: LDL?cholesterol?has?risen He?will?continue?current?medication - atorvastatin?20?mg?daily Work?at?lifestyle?changes Can?recheck?with?next?blood?draw (4) Screening for colon cancer: Code(s): Z12.11 - Encounter for screening for malignant neoplasm of colon Category: Medical Plan: Patient?had?colonoscopy?with??in?2018 He?has?his?next?appointment?with??coming?up Orders: Orders Comprehensive [place]. Panel Fast Today Z00.00 - Encounter for general adult medical examination without abnormal findings Lipid Panel Today Z00.00 - Encounter for general adult medical examination without abnormal findings Medications: Refilled atorvastatin 20 mg PO QPM 90 tabs 2RF 90 days
[2025-01-19 08:46] VITALS: BP 120/70; PULSE 72; RESP 14; TEMP 36.7; O2SAT 95; BMI 29.2
--- OUTSIDE RECORDS SUMMARY | 2025-01-19 08:46 | XMS_ITS | Patient Health Record ---
Author Organization [facility] Address [address] [place] [address] Care Team Providers Care Graphic Design Manager Name Role Phone Dejan Raphael Primary Care Provider Unavailab Taye Ang Unavailable [phone] Reason For Referral No Information Medications Medication SIG (Take, Route, Frequency, Duration) Notes Start Date End Date Status Lipitor Active Social History Tobacco Use: Social History Observation Description Date Details (start date - stop date) Current Smoker NA - NA Tobacco Use/Smoking Question Answer Notes Patient is a current smoker How many cigarettes a day do you smoke? 11-20 How soon after you wake up d o you smoke your first cigarette? 31-60 minutes Are you interested in quitting? Thinking about q uitting Section Notes: Nonsmoker since 2008, except for occ. cigar; approximately 2 beers QD Smoker 1/2-3/4 ppd; approxim ately 5 beers QD Problems Problem Type SNOMED Code ICD Code Onset Dates Problem Status W/U Status Risk Notes Problem 349045802 Encounter for screening for malignant neoplasm of colon (Z12.11) Active confirmed Problem 616078851632975 Preprocedural examination (Z01.818) Active confirmed Plan Of Treatment Future Test Test Name Order Date COLONOSCOPY 2014 COLONOSCOPY 08/06/2018 Next Appt Details Provider Name:Taye Garcia , 02/10/2025 02:20:00 PM, [address], [address], [place], [address], Insurance Providers Payer Name Payer Address Payer Phone Subscriber Number Group Number Insured Name Patient Relationship to Insured Coverage Start Date Coverage End Date [employer] [address] [place] [phone] JONAS BAUTISTA Self - patient is the insured Medical (General) History Medical History History ICD Code Denies [place],DM,CVA,Lung disease,renal dise ase Hyperlipidemia
--- OUTSIDE RECORDS SUMMARY | 2025-01-19 08:46 | XMS_ITS | Patient Health Record ---
Author Organization [facility] Address [address] [place] [address] Care Team Providers Care Shuttle Final Inspector Name Role Phone Dejan Raphael MD Primary Care Provider Charo Bess Unavailable [phone] Reason For Referral No Information Plan Of Treatment No Information Insurance Providers Payer Name Payer Address Payer Phone Subscriber Number Group Number Insured Name Patient Relationship to Insured Coverage Start Date Coverage End Date Harpreet [facility] [address] [place] [address] [id number] Cecy Qiu Spouse - patient is the spouse of the insured
--- OUTSIDE RECORDS SUMMARY | 2025-01-19 08:46 | XMS_ITS ---
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 * Medical History:? Objective: * Vitals:? Assessment: Plan: * Treatment: * Images: * The named appointment provid er may or may not be the originator of this progress note, and it is not deemed complete until electronically signed by the appointment provider. Sign off status: Pending * Provider:?Charo Koroma DPM Date:?07/2024 Generated for Aly potter/Mckenna/eTransmitting on:?01/19/2025 08:45 AM EDT
== END 2025-01-19 09:20 | disposition home or self-care (01) ==
LOC: HO.HMCFM 08:25
PROVIDERS: PCP Family Medicine; Visit Provider Family Medicine
DX: F17.210 Nicotine dependence, cigarettes, uncomplicated (principal); J43.9 Emphysema, unspecified; E78.5 Hyperlipidemia, unspecified; Z12.11 Encounter for screening for malignant neoplasm of colon

== ENCOUNTER → 2025-01-19 08:25 | Outpatient (BNVA) | payer BC, SELFPAY | PROVIDERS: PCP Family Medicine; Visit Provider Family Medicine ==

== ENCOUNTER 2025-05-26 07:21 | Day surgery (SDC) | payer BC, SELFPAY ==
[2025-05-24 10:29] VITALS: BMI 30.2
[2025-05-26 07:42] VITALS: BP 127/75; PULSE 61; RESP 18; TEMP 36.2; O2SAT 97
[2025-05-26] MEDS: Lactated Ringers 1,000 ML 100 ML IVCONT (07:44)
--- NOTE | 2025-05-26 07:46 | HO.ANESPROP2 ---
HPI - Anesthesia Eval Consult details Narrative: colon PMFSH Active Problems Active Problems: All Active Problems Tubular adenoma of colon (Acute) Nicotine dependence, cigarettes, uncomplicated (Acute) Emphysema of lung (Acute) Screening for prostate cancer (Acute) Elevated blood uric acid level (Acute) Erectile dysfunction (Acute) Screening for colon cancer (Acute) History of gout (Acute) Hyperlipidemia (Acute) Varicose veins of lower extremity (Acute) Bilateral swelling of feet (Acute) Past Medical History Medical History History of gout Tubular adenoma of colon Erectile dysfunction Hyperlipidemia Nicotine dependence, cigarettes, uncomplicated Family History Family History Father Brain aneurysm Mother High blood pressure Thyroid disease Other Mental health disorder Family history of problems with anesthesia: No Surgical History Surgical History History of colonoscopy History of Problems with Anesthesia: No Social History Social History Household Members: Family Housing: House Alcohol intake: current Patient Tobacco Use Status: Current everyday Tobacco user Cigarette Packs Per Day: 0.5 Cigarettes Per Day: 10 Years Smoked: (onset 15, 1/2-3/4ppd x 42yrs, 25pyh) e-Cigarette/Vaping Use: Former Use Use of substances other than those prescribed or required for medical reasons: No Special loy needs: No Advance Directives: No Advance Directives Information Provided: Yes service: No Current occupational status: employed 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 Cognitive needs: No Hearing needs: Yes (hearing aids) Vision needs: Yes (reading glasses.) Meds Allergies Allergy/AdvReac Type Severity Reaction Status Date / Time No Known Allergies Allergy Verified 01/19/25 08:44 Active Medications: Current Medications Lactated Ringer's (Lr) 1,000 mls @ 100 mls/hr IVCONT .Q10H AMAN Last Admin: 05/26/25 07:44 Dose: 100 mls/hr Sodium Biphosphate/Sodium Phosphate (Sodium Phosphate,[place]-Dibasic 133 Ml Enema) 133 ml IN ONCE PRN PRN Reason: Poor Colonoscopy Prep Results Exam Height,Weight and Vital Signs: Height 5 ft 9 in Weight 90.4 kg Last Vital Signs Temp 97.1 F 05/26/25 07:42 Pulse 61 05/26/25 07:42 Resp 18 05/26/25 07:42 BP 127/75 05/26/25 07:42 Pulse Ox 97 05/26/25 07:42 O2 Del Method Room Air 05/26/25 07:42 Airway Mallampati Class: II TM Dist: >3cm Neck ROM: Full Heart: rrr Lungs: cta Assessment and Plan Assessment Anesthesia Assessment: Anesthesia Plan Discussed and Chart Reviewed Final Anesthetic Review Family History of Problems with Anesthesia: No History of Problems with Anesthesia: No NPO: Yes ASA Class: II Final Preanesthetic Review: No Changes in Pt Med Stat, Meds/Allgs Chart Reviewed, Consent Obtained/Reviewed and Anes Risks/Benef Reviewed Patient Risk: Low Procedure Risk: Low Anesthetic Plan Anesthetic Plan: MAC: Disposition: Standard PACU
[2025-05-26 09:57] VITALS: BP 92/65; PULSE 63; RESP 18; TEMP 36.1; O2SAT 96
--- NOTE | 2025-05-26 09:59 | PM.OP ---
Brief Operative Note Date of Service: 05/26/25 Pre-op diagnosis: Screening Post-op diagnosis: other (Polyps) Procedure: Colonoscopy to the cecum with cold snare polypectomies and bx/removal of polyps Surgeon: Taye Garcia MD Anesthesia: MAC Was an Butane Compressor Operator used for this Procedure?: No Estimated blood loss (mL): 2.0 Pathology: other (A. Cecal polyp B. Polyp at 60cm C. Polyp at 20cm D. Rectal polyp) Condition: stable Disposition: PACU
[2025-05-26 10:07] VITALS: BP 102/72; PULSE 60; RESP 16; TEMP 36.2; O2SAT 97
--- NOTE | 2025-05-26 10:35 | OP_ITS ---
DATE OF SERVICE: 05/26/2025 SURGEON: Taye Garcia MD INDICATIONS: The patient presents for evaluation of colorectal cancer screening and personal history of tubular adenomas of the colon. Full consent has been obtained from him for this, including risks of bleeding and perforation. PREOPERATIVE DIAGNOSIS: POSTOPERATIVE DIAGNOSIS: PROCEDURE PERFORMED: Colonoscopy to the cecum with cold snare polypectomies and biopsies with removal of polyps. ESTIMATED BLOOD LOSS: COMPLICATIONS: ANESTHESIA: Medication used, monitored anesthesia care. ASSISTANTS: SPECIMENS: PREOPERATIVE DIAGNOSES: Colorectal cancer screening and history of tubular adenomas of the colon. POSTOPERATIVE DIAGNOSES: Colorectal cancer screening and history of tubular adenomas of the colon, colon polyps, diverticulosis, and internal hemorrhoids. DESCRIPTION OF PROCEDURE: The patient was placed in the left lateral decubitus position. The digital rectal exam revealed no abnormalities. The Olympus video pediatric colonoscope was entered into the rectum and advanced to the cecum with the assistance of abdominal wall pressure. Once in the cecum, I did identify normal-appearing cecal pouch with appendiceal orifice, other than an approximately 6 to 8 mm polyp in the cecum, which was removed by cold snare polypectomy and recovered by suction. The polypectomy site appeared clean, without any sign of residual polyp nor bleeding. The remainder of the cecum including the appendiceal orifice and ileocecal valve appeared normal. The scope was then slowly withdrawn assessing all mucosal surfaces carefully. Preparation was excellent. At 60 cm was an approximately 4 mm polyp, which was biopsied and completely removed with a cold biopsy forceps. At 20 cm was an approximately 5 or 6 mm polyp, which was removed by cold snare polypectomy and recovered by suction. The polypectomy site appeared clean, without any sign of residual polyp nor significant bleeding. In the rectum was a 3 mm polyp, which was removed by cold biopsy forceps completely. I did not visualize any other polyps, colitis, nor angiodysplasia. There was a mild amount of sigmoid diverticulosis. In the rectum, scope was retroflexed visualizing internal hemorrhoids, but no other pathology. The rectal mucosa appeared normal. Scope was straightened and withdrawn from the patient. He tolerated the procedure well and was returned to the recovery area in stable condition. IMPRESSION: 1. Colon polyps. 2. Diverticulosis. 3. Internal hemorrhoids. PLAN: The results of the pathology will be checked. I would recommend a repeat colonoscopy in 5 years for further screening and surveillance. He was advised not to use any aspirin or NSAIDs for 1 week. MD KATIE Meredith/KYLEE / [id number]
== END 2025-05-26 10:27 | disposition home or self-care (01) ==
PROVIDERS: PCP Family Medicine; Visit Provider Internal Medicine
PROC: 0DJD8ZZ Inspection of Lower Intestinal Tract, Via Natural or Artificial Opening Endoscopic (ICD-10-PCS; CPT 45378; principal; 2025-05-26 08:30)
DX: Z12.11 Encounter for screening for malignant neoplasm of colon (principal); D12.0 Benign neoplasm of cecum; D12.4 Benign neoplasm of descending colon; D12.5 Benign neoplasm of sigmoid colon; K62.1 Rectal polyp; K57.30 Diverticulosis of large intestine without perforation or abscess without bleeding; K64.8 Other hemorrhoids; Z86.0101 Personal history of adenomatous and serrated colon polyps; E78.5 Hyperlipidemia, unspecified; F17.210 Nicotine dependence, cigarettes, uncomplicated; Z79.02 Long term (current) use of antithrombotics/antiplatelets; Z79.899 Other long term (current) drug therapy
CPT/HCPCS: 45385; 45380; 88305; J2003; J2704

== ENCOUNTER 2025-07-06 06:37 | Outpatient (REF) | payer BC, SELFPAY ==
--- OUTSIDE RECORDS SUMMARY | 2024-06-23 04:30 | XMS_ITS ---
Author Organization [facility] Address [address] [place] [address] Care Team Providers Care Payroll Administrative Assistant Name Role Phone Donavon SKINNER, Dejan Primary Care Provider Charo Bess Unavailable [phone] REASON FOR VISIT no DIRECTOR OF CARDIAC CATH LAB ppwrk Encounters Encounter Location Date Provider Diagnosis [facility] [address] [place] [address] 06/23/2024 Charo Koroma Plan Of Treatment No Information Progress Notes * Uziel QIUDOB:[birth year] (60 yo M)Acc No.[id number]:06/23/2024 Progress Notes Patient: Uziel ZURITA Provider: Andrés Koroma DPM :1965 A ge:59 Y S ex:Male Date:06/23/2024 Address:[address] [place], [place] [id number] Pcp:Dejan Raphael MD Subjective: * Chief Complaints: * 1 . no DIRECTOR OF CARDIAC CATH LAB ppwrk. * Medical History: Objective: * Vitals: Assessment: Plan: * Treatment: * Images: * The named appointment provid er may or may not be the originator of this progress note, and it is not deemed complete until electronically signed by the appointment provider. Sign off status: Pending * Provider: Andrés oKroma DPM Date: 06/23/2024 Generated for Aly potter/Mckenna/eTransmitting on: 07/06/2025 06:41 AM EDT
--- OUTSIDE RECORDS SUMMARY | 2025-05-26 04:30 | XMS_ITS ---
Author Organization [facility] Address [address] [place] [address] Care Team Providers Care Locomotive Mechanic Apprentice Name Role Phone Dejan Raphael Primary Care Provider Taye Figueroa [phone] REASON FOR VISIT screening colon Encounters Encounter Location Date Provider Diagnosis [facility] Outpatient [address] [facility] Kali calvinsergio [place] [id number] 05/26/2025 Taye Garcia Plan Of Treatment No Information Progress Notes * JONAS BAUTISTADOB:[birth year] (60 yo M)Acc No.[id number]:05/26/2025 COLON WITH MAC Patient: JONAS ZURITA Provider: Anne Garcia MD :1965 A ge:60 Y S ex:Male Date:05/26/2025 Address:[address] [id number] Pcp:Dejan Raphael Subjective: * Chief Complaints: * 1 . Screening colon. * Medical History: Objective: * Vitals: Assessment: Plan: * Treatment: * * The named appointment provid er may or may not be the originator of this progress note, and it is not deemed complete until electronically signed by the appointment provider. Sign off status: Pending * Provider: Anne Garcia MD Date: 0 05/26/2025 Generated for Aly potter/Mckenna/eTransmitting on: 07/06/2025 06:40 AM EDT
--- OUTSIDE RECORDS SUMMARY | 2025-07-06 06:41 | XMS_ITS | Patient Health Record ---
Author Organization [facility] Address [address] [place] [address] Care Team Providers Care Online Editor Name Role Phone Dejan Raphael Primary Care Provider UnavailTaye Chong Unavailable [phone] Allergies No Known Allergies Results Component Value Reference Range Notes Pathology (Not yet reviewed by provider) Interpretation: Performing Lab:[facility], [address] [place] [id number] Notes/Report: Reason For Referral No Information Medications Medication SIG (Take, Route, Frequency, Duration) Notes Start Date End Date Status Atorvastatin Calcium 20 MG TAKE ONE TABL ET BY MOUTH IN THE EVENING Oral for 90 Days Active Sildenafil Citrate 50 MG TAKE 1 TABLET B Y MOUTH ONCE A DAY NEEDED FOR SEXUAL ACTIVITY. ADMINISTER 30 MINUTES TO 4 HOURS BEFORE ACTIVITY. Oral for 30 Days Active Immunizations Vaccine Route Administration Date Status Comme nts Influenza Unknown 02/10/2025 Refused Social History Tobacco Use: Social History Observation [...] 1/2-3/4 ppd; approxim ately 5 beers QD Smoker 1/2-3/4 ppd; approxim ately 5 beers QD Problems Problem Type SNOMED Code ICD Code Onset Dates Problem Status W/U Status Risk Notes Problem 677652497 Encounter for screening for malignant neoplasm of colon (Z12.11) Active confirmed Problem 096536527402045 Preprocedural examination (Z01.818) Active confirmed Problem History of adenomatous polyp of colon (122671180) History of adenomatous polyp of colon (Z86.0101) Active confirmed Vital Signs Temperature 98.6 degrees Fahrenheit 02/10/2025 Blood pressure diastolic 01 mm Hg 02/10/2025 Height 69 in 02/10/2025 Blood pressure systolic 001 mm Hg 02/10/2025 Weight 204.2 lbs 02/10/2025 BMI 30.15 kg/m2 02/10/2025 Procedures Procedure Date Ordered Date Performed Result Body Sit e COLONOSCOPY 02/10/2025 N/A Encounters Encounter Location Date Provider Diagnosis [facility] Outpatient [address], [place] [id number] 05/26/2025 Taye Radha [facility] [address] [place] [address] 02/10/2025 Taye Garcia Encounter for screening for malignant neoplasm of colon Z12.11 ; Preprocedural examination Z01.818 and History of adenomatous polyp of colon Z86.0101 Assessments Encounter Date Diagnosis (ICD Code) Assessment Notes Treatment Notes Treatment Clinical Notes Section Notes 02/10/2025 Encounter for screening for malignant neoplasm of colon (ICD-10 - Z12.11) Overall, Christina appears quite well. Given his history of previous tubular adenomas removed over 5 years ago, his age, and good clinical appearance, I did recommend a follow-up colonoscopy for further screening purposes. We did review the rationale for this in regard to colon cancer prevention. Full consent has been obtained for this, including risks of bleeding and perforation. The procedure will be done with monitored anesthesia care. Christina was comfortable with this plan. Thank you again for allowing me to participate in Christina's care. I shall continue to keep you advised of his progress. 02/10/2025 Preprocedural examination (ICD-10 - Z01.818) Overall, Christina appears quite well. Given his history of previous tubular adenomas removed over 5 years ago, his age, and good clinical appearance, I did recommend a follow-up colonoscopy for further screening purposes. We did review the rationale for this in regard to colon cancer prevention. Full consent has been obtained for this, including risks of bleeding and perforation. The procedure will be done with monitored anesthesia care. Christina was comfortable with this plan. Thank you again for allowing me to participate in Christina's care. I shall continue to keep you advised of his progress. 02/10/2025 History of adenomatous polyp of colon (ICD-10 - Z86.0101) Overall, Christina appears quite well. Given his history of previous tubular adenomas removed over 5 years ago, his age, and good clinical appearance, I did recommend a follow-up colonoscopy for further screening purposes. We did review the rationale for this in regard to colon cancer prevention. Full consent has been obtained for this, including risks of bleeding and perforation. The procedure will be done with monitored anesthesia care. Christina was comfortable with this plan. Thank you again for allowing me to participate in Christina's care. I shall continue to keep you advised of his progress. Plan Of Treatment Pending Test Test Name Order Date COLONOSCOPY 02/10/2025 Pathology 05/26/2025 Future Test Test Name Order Date COLONOSCOPY 2014 COLONOSCOPY 08/06/2018 Insurance Providers Payer Name Payer Address Payer Phone Subscriber Number Group Number Insured Name Patient Relationship to Insured Coverage Start Date Coverage End Date [facility] [address] [place] [address] [id number] JONAS BAUTISTA Self - patient is the insured Medical (General) History Medical History History ICD Code Denies [place],DM,CVA,Lung disease,renal dise ase Hyperlipidemia Screening colonoscopy in 2018 with remov al of 3 tubular adenomas
--- OUTSIDE RECORDS SUMMARY | 2025-07-06 06:41 | XMS_ITS | Patient Health Record ---
Author Organization [facility] Address [address] [place] [address] Care Team Providers Care Gear Shaver Set Up Operator Name Role Phone Dejan Raphael MD Primary Care Provider Charo Bess Unavailable [phone] Reason For Referral No Information Plan Of Treatment No Information Insurance Providers Payer Name Payer Address Payer Phone Subscriber Number Group Number Insured Name Patient Relationship to Insured Coverage Start Date Coverage End Date Harpreet [facility] [address] [place] [address] [id number] Cecy Qiu Spouse - patient is the spouse of the insured
== END 2025-07-06 06:38 | disposition home or self-care (01) ==
LOC: HO.LAB 06:37
PROVIDERS: PCP Family Medicine; Visit Provider Family Medicine
DX: Z00.00 Encounter for general adult medical examination without abnormal findings (principal); Z13.6 Encounter for screening for cardiovascular disorders
CPT/HCPCS: 36415; 80053; 80061

== ENCOUNTER 2025-07-20 08:07 | Outpatient (AMB) | payer BC, SELFPAY ==
--- NOTE | 2025-07-20 08:12 | A.OFFPC_ITS ---
Vital Signs 07/20/25 08:23 Height 5 ft 11 in Weight 204 lb BMI 28.4 BP 118/68 Blood Pressure Location Rt brachial Position Sitting Respiration 16 Pulse 78 Pulse Source Pulse Oximeter Temp 97.5 F Temp Source Temporal Artery Scan Pulse Oximetry (%) 94 Oxygen Delivery Method Room Air Intake Visit Reasons: f/u HLD, chronic conditions Intake Note: Uziel presents in the office today for a follow up to his cholesterol. 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 Labs drawn 07/06/25. Reviewed labs with pt. Elevated AST of 47. Triglycerides 197. TC 204. LDL 103. HDL 62. He is on artovastatin 20mg. HPI Comments History of Present Illness Details Documentation assistance for Dejan Raphael MD, was provided by Stef Moses, Sports Equipment Repairer on 07/20/2025 at 8:30 AM EST. I, Dr. Raphael, have read, observed, and verified documentation. [facility] Medical History History of gout Tubular adenoma of colon Erectile dysfunction Hyperlipidemia Nicotine dependence, cigarettes, uncomplicated Surgical History History of colonoscopy Family History Father Brain aneurysm Mother High blood pressure Thyroid disease Other Mental health disorder Social History (Updated 07/20/25 @ 08:23 by Kenyetta Kenney CMA) Household Members: Family Housing: House Alcohol intake: current Patient Tobacco Use Status: Current everyday Tobacco user Cigarette Packs Per Day: 0.5 Cigarettes Per Day: 10 Years Smoked: (onset 15, 1/2-3/4ppd x 42yrs, 25pyh) e-Cigarette/Vaping Use: Former Use Second Hand Smoke Exposure: No Special loy needs: No service: No Current occupational status: employed 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 Cognitive needs: No Hearing needs: Yes (hearing aids) Vision needs: Yes (reading glasses.) Questionnaire Thrive Questionnaire Date Thrive assessed: 01/19/25 I am a: Patient What is your living situation today?: I have a steady place to live Within the past 12 months, did the food you bought not last and you didn't have the money to get more?: Never true Within the past 12 months, did you worry whether your food would run out before you got money to buy more?: Never true Do you have trouble paying for medicines?: No Do you have trouble getting transportation to medical appointments?: No Do you have trouble paying your heating and electricity bill?: No Do you have trouble taking care of your child, family member or friend?: No Do you have trouble with day-to-day activities such as bathing, preparing meals, shopping, managing finances, etc.?: No Are you currently unemployed and looking for a job?: No Are you interested in more education?: No Please select the resources that you would like help with: None Currently or been in a relationship where the following occur: No concerns reported THRIVE Score: 0 TAPAN-7 AMB Questionnaire TAPAN-7 Date TAPAN - 7 assessed: 09/29/24 Source: Developed by Drs. Taye Tellez, Lauren Leigh, Eliceo Boogie and colleagues, with an educational kieran from [employer]. Review of Systems Const Denies chills, Denies fatigue, Denies fever(s), Denies headache(s) and Denies weakness ENT Denies dizziness and Denies headache(s) Card Denies dyspnea Resp Denies cough, Denies dyspnea, Denies wheezing and Denies other (shortness of breath) Musc Denies numbness and Denies tingling Neuro Denies dizziness, Denies headache(s), Denies numbness, Denies tingling and Denies weakness Psych Denies anxiety and Denies depression Endo Denies fatigue Aller/Immun Denies wheezing Physical exam (Primary Care) Vital Signs: Last Vital Signs Temp 97.5 F 07/20/25 08:23 Pulse 78 07/20/25 08:23 Resp 16 07/20/25 08:23 BP 118/68 07/20/25 08:23 Pulse Ox 94 07/20/25 08:23 Oxygen Delivery Method Room Air 07/20/25 08:23 BMI result Body Mass Index 28.4 Tobacco/Smoking Status: Tobacco use Status Tobacco use date assessed 07/20/25 07/20/25 08:28 Patient Tobacco Use Status Current everyday Tobacco 07/20/25 08:23 e-Cigarette/Vaping Use Former Use 07/20/25 08:23 Thrive Assessment: Date of Thrive Assessment Date Thrive assessed 01/19/25 07/20/25 08:15 Currently or been in a relationship where the following occur: No concerns reported Const General: well developed; No acute distress Nutritional Appearance: well nourished Orientation/consciousness: patient oriented x3 HENMT Head: Yes normocephalic and Yes atraumatic Eyes General: appearance normal, both eyes and all related structures Pupils: Equal, round and reactive pupils present EOM: EOMs intact bilaterally Resp Other: Mildly distant breath sounds Effort & Inspection: normal respiratory effort Auscultation: clear to auscultation bilaterally Cardio Rate: regular rate Rhythm: regular rhythm Heart sounds: S1 normal heart sound present, S2 normal heart sound present, no gallops, no murmurs and no rubs Neuro General: patient oriented x3 and gait normal Cranial nerves: Yes Equal, round and reactive pupils present Psych Affect: normal affect Coding Level of Care Code Est Pt Level 4 (84545) Diagnoses Elevated AST (SGOT) R74.01 Hyperlipidemia E78.5 Emphysema of lung J43.9 Screening for colon cancer Z12.11 Assessment & Plan Assessment & Plan (1) Elevated AST (SGOT): Code(s): R74.01 - Elevation of levels of liver transaminase levels Category: Medical Plan: Mildly elevated AST Likely some hepatic steatosis and dehydration Encouraged good hydration and 5-10 lb weight loss Will recheck in a few months (2) Hyperlipidemia: Code(s): E78.5 - Hyperlipidemia, unspecified Category: Medical Plan: LDL cholesterol much improved though still slightly above goal Encouraged ongoing lifestyle changes including a diet low in saturated fats and cholesterol and a 5-10 lb weight loss Will recheck with next blood draw (3) Emphysema of lung: Code(s): J43.9 - Emphysema, unspecified Category: Medical Plan: Encouraged smoking cessation Patient has not had his LDCT scan ordered yet I have sent a message through the office to try to get him scheduled. (4) Screening for colon cancer: Code(s): Z12.11 - Encounter for screening for malignant neoplasm of colon Category: Medical Plan: Patient saw Dr. Garcia and had a colonoscopy this year. Was told to follow-up in 5 years. Will request report Orders: Orders Lipid Panel Today E78.5 - Hyperlipidemia, unspecified, Z00.00 - Encounter for general adult medical examination without abnormal findings Comprehensive [place]. Panel Fast Today E78.5 - Hyperlipidemia, unspecified, Z00.00 - Encounter for general adult medical examination without abnormal findings
[2025-07-20 08:23] VITALS: BP 118/68; PULSE 78; RESP 16; TEMP 36.4; O2SAT 94; BMI 28.4
== END 2025-07-20 08:58 | disposition home or self-care (01) ==
LOC: HO.HMCFM 08:08
PROVIDERS: PCP Family Medicine; Visit Provider Family Medicine
DX: R74.01 Elevation of levels of liver transaminase levels (principal); E78.5 Hyperlipidemia, unspecified; J43.9 Emphysema, unspecified; Z12.11 Encounter for screening for malignant neoplasm of colon